=== PATIENT | female | born 1975 ===

== ENCOUNTER 2019-07-09 12:28 | Outpatient (CLI) | payer OTHER ==
[~2019-07-09 12:28] MED LIST: CIPRO500 MG PO
== END 2019-07-09 12:47 | disposition home or self-care (01) ==
LOC: MAMO-SONO 12:28
DX: Z12.31 Encounter for screening mammogram for malignant neoplasm of breast (principal); Z87.898 Personal history of other specified conditions; N94.0 Mittelschmerz; R10.2 Pelvic and perineal pain; N94.89 Other specified conditions associated with female genital organs and menstrual cycle; N63.10 Unspecified lump in the right breast, unspecified quadrant; N63.20 Unspecified lump in the left breast, unspecified quadrant; N64.59 Other signs and symptoms in breast; N64.89 Other specified disorders of breast

== ENCOUNTER 2021-11-23 10:35 | Outpatient (CLI) | payer OTHER | END 2021-11-23 10:36 | disposition home or self-care (01) | LOC: MAMO-SONO 10:35 | PROVIDERS: ATTEND Obstetrics & Gynecology | DX: N63.0 Unspecified lump in unspecified breast (principal); N64.59 Other signs and symptoms in breast; N64.9 Disorder of breast, unspecified; N94.0 Mittelschmerz; R10.2 Pelvic and perineal pain; N94.89 Other specified conditions associated with female genital organs and menstrual cycle ==

== ENCOUNTER 2022-02-25 10:44 | Outpatient (CLI) | payer OTHER | END 2022-02-25 10:45 | disposition home or self-care (01) | LOC: LAB 10:44 | PROVIDERS: ATTEND Specialist | DX: N63.22 Unspecified lump in the left breast, upper inner quadrant (principal); Z01.812 Encounter for preprocedural laboratory examination ==

== ENCOUNTER → 2022-11-19 11:51 | Outpatient (CLI) | payer OTHER | END | disposition home or self-care (01) | LOC: LAB 11:51 | PROVIDERS: ATTEND Urology | DX: N39.0 Urinary tract infection, site not specified (principal) ==

== ENCOUNTER 2023-03-06 10:44 | Outpatient (CLI) | payer OTHER | END 2023-03-06 11:00 | disposition home or self-care (01) | LOC: MAMO-SONO 10:44 | PROVIDERS: ATTEND Specialist | DX: Z98.890 Other specified postprocedural states (principal); Z12.31 Encounter for screening mammogram for malignant neoplasm of breast ==

== ENCOUNTER 2023-03-28 10:36 | Outpatient (CLI) | payer OTHER | END 2023-03-28 13:31 | disposition home or self-care (01) | LOC: SONOGRAMA 10:36 | PROVIDERS: ATTEND Obstetrics & Gynecology | DX: N94.0 Mittelschmerz (principal); R10.2 Pelvic and perineal pain; N94.89 Other specified conditions associated with female genital organs and menstrual cycle; Z88.6 Allergy status to analgesic agent ==

== ENCOUNTER 2024-08-12 11:56 | Outpatient (CLI) | payer OTHER | END 2024-08-12 11:58 | disposition home or self-care (01) | LOC: MAMO-SONO 11:56 | PROVIDERS: ATTEND Specialist | DX: D24.1 Benign neoplasm of right breast (principal); D24.2 Benign neoplasm of left breast ==